=== PATIENT | female | born 1975 | race Hispanic/Latino ===

== ENCOUNTER 2017-03-13 06:42 | Day surgery (SDC) | payer OTHER ==
[2017-03-11 09:31] VITALS: BMI 27.4
[2017-03-13] MEDS ORDERED: Bupivacaine 0.5% Inj(30mL) ONE (07:18)
[2017-03-13] MEDS ORDERED: ceFAZolin IV 1 gm in Dextrose 2 GM/100 ML BAG IVPB ONE (07:18)
[2017-03-13] MEDS ORDERED: Lactated Ringer's 1,000 ML IV ONE ×2 (07:30→09:00)
[2017-03-13] MEDS ORDERED: Propofol 10 mg/ml Inj (20 ML) ONE (07:47)
[2017-03-13] MEDS ORDERED: ePHEDrine 50 mg/ml Inj ONE (07:48)
[2017-03-13] MEDS ORDERED: Rocuronium 10 mg/ml (5 ml) ONE (07:48)
[2017-03-13] MEDS ORDERED: Succinylcholine 200 mg/10 ml Inj IV ONE (07:48)
[2017-03-13] MEDS ORDERED: Lidocaine 4% (Laryng-O-Jet) Kit MM ONE (07:49)
[2017-03-13 08:18] LABS: HEMATOCRIT 34.8 % (34.0-47.0); MEAN CELL VOLUME 89.9 fl (81.0-99.0); MEAN CORPUSCULAR HEMOGLOBIN 30.5 pg (27.0-31.0); RED CELL DISTRIBUTION WIDTH 13.2 % (11.5-14.5); WHITE BLOOD COUNT 6.5 K/uL (4.8-10.8)
[2017-03-13] MEDS ORDERED: Midazolam 2 MG/2 ML VIAL ONE (08:42)
[2017-03-13] MEDS ORDERED: Dexamethasone 4 mg/1 ml ONE (09:19)
[2017-03-13] MEDS ORDERED: Bupivacaine 0.5% 50 ML IJ ONE ×2 (09:20→10:11)
[2017-03-13] MEDS ORDERED: Neostigmine Methylsulfate 2 MG/2 ML ML IV ONE (10:06)
[2017-03-13] MEDS ORDERED: Neostigmine Methylsulfate 3mg/3ml Syringe IV ONE (10:06)
[2017-03-13] MEDS ORDERED: Lactated Ringer's 1,000 ML IV SCH (10:30)
[2017-03-13] MEDS: HYDROmorphone 0.5 mg/0.5 ml ISec IVP PRN ×2 (10:39→10:53)
[2017-03-13] MEDS ORDERED: Oxycodone/Acetaminophen 5/325 mg Tab PO PRN (10:41)
[2017-03-13 11:35] VITALS: RESP 18
[2017-03-13] MEDS ORDERED: Oxycodone/Acetaminophen 5/325 mg Tab PO ONE (12:35)
[2017-03-13 16:29] VITALS: BP 110/70; PULSE 95; TEMP 98.2; O2SAT 100
--- NOTE | 2017-03-16 14:08 | PCM.OP ---
Operative Report - Operative Report Date of Surgery/Procedure: 03/13/17 Time of Surgery/Procedure: 08:00 Surgeon: Dr. Evaristo Naidu Logging Tractor Operator Swamp: Dr. Pieter Tomlinson Anesthesia/Sedation: general/Dr. 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 2-Excision of multiple rectal endometeriosis. Brief History: This is a 42 year old woman who has been operated in the past on 04/19/16 with endometriosis for abdominal pain. She is now explored by Dr. Kidd for recurrence when he noted involvement of the appendix and rectum. Intraoperative general surgery consutation was requested. Description of the Procedure: The patient had already had initiation of the robotic procedure by Dr. Kidd (separate dictation Dr. Tomlinson). After taking control of the robotic console the rectum was examined and multiple lesions ( times three clusters) were noted. Using blunt and sharp dissection the first, most distal lesion, was circumferentially incised and gnetly lifted from the rectal wall. Hemostsis was achieved with electrocauteryy and once the specimen was removed en-bloc it was appropriately marked and sent to pathology separately. The other two specimens on the rectal wall were removed in a similar manner and each were sent separately to pathology. Hemostasis was adequate. Our attention then turned to the veriform appendix and with anterior and inferior retraction the mesnentery was dessicated with electrocauteery with particular attemntion to the dessication of the appnediceal artery. The appendix was dissected to the base and with looped 3-0 PDS it was ligagted dooubly. The appendix was transected and sent to pathology separately. The area of cecum where the mesnentery was sdessicated was oversewn with 3-0 vicryl sutures in a Lembert fashion. Hemostasis was deemed adeqaute. The operation was then turned back to Dr. Tomlinson (separate dictation Dr. Tomlinson). Estimated Blood Loss: 5 cc Complications: none Discharge & Condition: stable
--- NOTE | 2017-03-25 13:25 | OP ---
PROCEDURE DATE: 03/14/2017 SURGEON: Pieter Tomlinson MD. MAINTENANCE ENGINEER OIL FIELD: Evaristo Naidu MD. who will also separately dictate a separate procedure, appendectomy. PREOPERATIVE DIAGNOSES: Pelvic pain, dysmenorrhea, dyspareunia, and history of endometriosis. POSTOPERATIVE DIAGNOSES: Pelvic pain, dysmenorrhea, dyspareunia, history of endometriosis, and recurrent pelvic endometriosis. PROCEDURE PERFORMED: Hysteroscopy, diagnostic and robotic excision of endometriosis, and bilateral ureterolysis, and separately to be dictated by Dr. Naidu, is appendectomy. ANESTHESIA ADMINISTERED BY: Alexandra Figueroa MD. ESTIMATED BLOOD LOSS: Minimal. COMPLICATIONS: None. DESCRIPTION OF PROCEDURE: After adequate anesthesia was obtained, patient was placed in dorsal lithotomy position. A time-out was taken. At this point, attention was in the vaginal area where after placing a speculum in the vagina, the anterior lip of the cervix was grasped, the cervix was gently dilated, and a hysteroscope was inserted into the uterine cavity revealing a normal cavity with no evidence of any fibroids, lesions, or tumors. At this point, a uterine manipulator was placed in the uterus and attention was on the abdomen where an open laparoscopy was performed, entering the peritoneum in a blunt fashion, the cannula was inserted, and the abdomen was insufflated. Under direct visualization, 3 additional ports were inserted; left upper quadrant, left mid quadrant, and right upper quadrant. At this point, the da Yolette robot was docked and targeted and the procedure was started. The upper abdomen was examined and appeared to be free of any lesions including the diaphragm. At this point, the appendix was examined and appeared to have some serosal defects suggestive of endometriosis or inflammation. Dr. Naidu was called in and he performed an appendectomy that he will dictated on a separate dictation. At this point, attention was in the pelvis where there was evidence of endometriosis in the following area: Left pelvic sidewall, left perirectal area, right perirectal area, right pelvic sidewall, posterior aspect of the uterus. At this point, attention was first in the left pelvic sidewall where attention was in the left ureter, which was identified and a full dissection was performed entering the peritoneum on the left side and dissecting peritoneum off the pelvic sidewall all the way down to the level of the uterosacral levels. At this point, the colon was elevated and moved laterally and an area of thickened endometriosis was identified with classic black lesions in the left perirectal space. After identifying the hypogastric nerve plexus, which were preserved, the area was progressively dissected excising a large area of peritoneum containing endometriosis tissue. At this point, attention was on the right perirectal area where again another lesion was observed right on the side of the rectum. Again, with great care to not to injure the rectum, a full excision was performed excising a large area containing endometriosis. At this point, attention was on the posterior aspect of the uterus and the cervix where an area of endometriosis in the posterior cervical area was also excised with great care to avoid damaging the rectum. At this point, on the right pelvic sidewall, the uterus was identified and a progressive dissection was performed dissecting the ureter laterally and excising an area of peritoneum in the right ovarian fossa containing endometriosis. Additional areas in the cul-de-sac did not have evidence of endometriosis but had evidence of inflammation that were destroyed utilizing superficial energy. Once the whole area was excised, it was checked for hemostasis and appeared to be excellent. Both ureters were visualized to be in excellent condition. At this point, the da Yolette robot was undocked, the instruments were removed. The abdomen was desufflated. The incisions were closed in layers with 0 Vicryl for the fascia and 4-0 Monocryl for the skin. At the end of the procedure, all tapes and instruments counts were correct. The patient was taken to recovery room in excellent condition. Pieter Tomlinson MD
== END 2017-03-13 16:30 | disposition home or self-care (01) ==
LOC: H.OPSURG 06:42
PROVIDERS: ATTEND Obstetrics & Gynecology Reproductive Endocrinology
DX: N80.3 Endometriosis of pelvic peritoneum (principal); R10.2 Pelvic and perineal pain; N94.10 Unspecified dyspareunia; N80.5 Endometriosis of intestine
CPT/HCPCS: 36415; 44970; 58662; 85027; 86850; 86900; 88305; C1729; J0330; J0690; J1100; J1170; J2001; J2250; J2405; J2704; J2710; J3010; J7030; J7040; J7120